=== PATIENT | male | born 1970 | race Caucasian/White ===

== ENCOUNTER 2017-05-09 21:04 | Inpatient (IN) | payer SELFPAY ==
[2017-05-09] MEDS ORDERED: Lorazepam 2 MG/ML VIAL ONE ×2 (21:54→22:49)
[2017-05-09 22:47] LABS: #Basophils 0.1 thou/uL (0.0-0.2); #Eosinphils 0.2 thou/uL (0.0-0.7); #Lymphocytes 2.1 thou/uL (1.20-3.40); #Monocytes 0.8 thou/uL (0.11-0.59); #Neutrophils 6.8 thou/uL (1.40-6.50); %Basophils 0.5 % (0.0-1.0); %Eosinophils 1.9 % (0.0-10.0); %Monocytes 8.1 % (0.0-10.0); Hematocrit 42.9 % (42.0-52.0); Mean Platelet Volume 7.3 fL (7.4-10.4); White Blood Cell (WBC) Count 9.9 thou/uL (4.8-10.8)
[2017-05-09 23:02] LABS: Lactic Acid - Sepsis 1.4 mmol/L (0.5-2.2)
[2017-05-09 23:03] LABS: Acetaminophen Less than 6.0 mcg/mL (10.0-30.0); Salicylate Less than 8.0 mg/dL (15.0-30.0)
[2017-05-09 23:05] LABS: ALT (SGPT) 7 U/L (8-55); AST (SGOT) 10 U/L (5-34); Alkaline Phosphatase 80 U/L (40-150); Anion Gap 13 mmol/L (10-20); BUN (Urea Nitrogen) 10 mg/dL (8.9-20.6); Bilirubin, Total 0.2 mg/dL (0.2-1.2); CK (CPK) 23 U/L (30-200); Calc. Creatinine Clearance 0 mL/min (70-130); Calcium 8.6 mg/dL (7.8-10.44); Carbon Dioxide 22 mmol/L (22-29); Chloride 109 mmol/L (98-107); Estimated GFR-MDRD Greater than 90; Globulin 2.4 g/dL (2.4-3.5); Lipase 56 U/L (8-78); Protein, Total 5.9 g/dL (6.0-8.3)
[2017-05-09] MEDS ORDERED: Haloperidol Lactate 5 MG/ML VIAL ONE (23:05)
[2017-05-09 23:09] LABS: Troponin I Less than 0.010 ng/mL (< 0.028)
[2017-05-09] MEDS ORDERED: diphenhydrAMINE 50 MG/ML VIAL ONE (23:15)
[2017-05-10] MEDS ORDERED: Acetaminophen 500 MG TAB ONE (00:55)
[2017-05-10] MEDS ORDERED: Ondansetron HCl/PF 4 MG/2 ML Vial IVP PRN (02:01)
[2017-05-10] MEDS ORDERED: Bisacodyl 5 MG TAB PO PRN (02:01)
--- NOTE | 2017-05-10 03:14 | HP ---
PRIMARY CARE PROVIDER: None. CHIEF COMPLAINT: Alcohol withdrawal. HISTORY OF PRESENT ILLNESS: Mr. Glass is a pleasant 46-year-old gentleman who was seen at [facility] on 05/10/2017. He reports that he has a history of chronic alcohol use. He stopped drinking alcohol 2 days ago. He started having pain everywhere. He took 12 pills of oxycodone three days ago. He took 20 tablets o f Focalin from his daughter the following day. Two days ago, he drank 1-2 caps of bleach in a gallon of water. He reports that he uses that to detox himself prior to drug screens. He also took 20 tab lets of Lyrica yesterday. He came to the emergency room because he has been feeling shaky over the last few days. He denies an y chest pain or shortness of breath. He denies any abdominal pain. He reports nausea, but denies an y vomiting. REVIEW OF SYSTEMS: The following complete review of systems was negative, unless otherwise mentioned in the HPI or below: Constitutional: Weight loss or gain, sense of well-being, ability to conduct usual activities, exercise tolerance. Skin/Breast: Rash, itching, changes in hair growth or loss, n ail changes, breast lumps, tenderness, swelling, nipple discharge. Eyes: Vision, double vision, tea ring, blind spots, pain. ENT/Mouth: Headaches (location, time of onset, duration, precipitating fac tors), vertigo, lightheadedness, injury. Vision, double vision, tearing, blind spots, pain, nose blee ding, colds, obstruction, discharge, dental difficulties, gingival bleeding, dentures, neck stiffness , pain, tenderness, masses in thyroid or other areas. Cardiovascular: Precordial pain, substernal d istress, palpitations, syncope, dyspnea on exertion, orthopnea, nocturnal paroxysmal dyspnea, edema, cyanosis, hypertension, heart murmurs, varicosities, phlebitis, claudication. Respiratory: Pain, sh ortness of breath, wheezing, stridor, cough, hemoptysis, fever or night sweats. Gastrointestinal: P oor appetite, dysphagia, indigestion, abdominal pain, heartburn, eructation, nausea, vomiting, hemate mesis, jaundice, constipation, or diarrhea, abnormal stools (adan-colored, tarry, bloody, greasy, fou l smelling), flatulence, hemorrhoids, recent changes in bowel habits. Genitourinary: Urgency, frequ ency, dysuria, nocturia, hematuria, polyuria, oliguria, unusual (or change in) color of urine, stones , hesitancy, change in size of stream, dribbling, acute retention or incontinence, libido, potency. Musculoskeletal: Pain, swelling, redness or heat of muscles or joints, limitation of motion, muscula r weakness, atrophy, cramps. Neurologic/Psychiatric: Convulsions, paralyzes, tremor, incoordination , paresthesias, difficulties with memory of speech, sensory or motor disturbances, or muscular coordi nation (ataxia, tremor), emotional problems, anxiety, depression, previous psychiatric care, unusual perceptions, hallucinations. Allergy/Immunologic: Skin rash, anemia, bleeding tendency, polydipsia, polyuria, intolerance to heat or cold. PAST MEDICAL HISTORY: Cauda equina, herniated disk at L4 and L5. PAST SURGICAL HISTORY: Back surgery x2, hernia repair, tonsillectomy. PSYCHIATRIC HISTORY: Anxiety, bipolar disorder, depression. SOCIAL HISTORY: The patient stopped drinking alcohol 2 days ago. Prior to that, he used to drink a case and half of beer every day since age 15. He reports occasional marijuana use. He smokes 2 pack s of cigarettes a day. FAMILY HISTORY: He denies any family history of premature coronary artery disease. ALLERGIES: PENICILLIN, PENICILLAMINE, PREDNISONE. CURRENT MEDICATIONS: None. PHYSICAL EXAMINATION: GENERAL: Mr. Glass is awake and alert, not in acute distress. He is speaking in [place] es. VITAL SIGNS: Blood pressure is 127/72, pulse is 89. His breathing at rate of 20 and saturating 98% on room air. He is afebrile. When he presented to the emergency room, he had a blood pressure of 14 4/93, pulse 121, respiratory rate of 22. EYES: No scleral icterus. No conjunctival pallor. ENT: Moist mucosal membranes. No oropharyngeal erythema or exudates. NECK: Supple, nontender, normal range of movement, trachea is midline. RESPIRATORY: Accessory muscles of breathing are not active. Chest wall movements are symmetric bila terally. LUNGS: Clear to auscultation without wheeze, rhonchi, or crepitations. CARDIOVASCULAR: S1 and S2 are heard, regular. Peripheral pulses palpable. No carotid bruit, no per icardial rub. ABDOMEN: Soft, nontender, bowel sounds heard. No hepatomegaly, no splenomegaly. NEUROLOGIC: Cranial nerves II through XII are intact. Deep tendon reflexes are 2+. PSYCHIATRIC: Normal mood, normal affect. Patient is oriented to person and place, not to time. SKIN: No rashes or subcutaneous nodules. LYMPHATIC: No cervical lymphadenopathy. MUSCULOSKELETAL: Power is 5/5 in all 4 extremities. LABORATORY DATA: Mr. Glass's labs and investigations were reviewed. I reviewed his chest x-ray , which does not show any pulmonary infiltrates. I reviewed his electrocardiogram, which shows sinus tachycardia, no ST changes to suggest an acute coronary syndrome. Laboratory investigation show nor mal white count, normal hemoglobin, normal platelet count, unremarkable comprehensive metabolic profi le, normal troponin I, and normal TSH. Plasma alcohol level is less than 10. Urine drug screen is p ending. ASSESSMENT AND PLAN: Mr. Glass is a pleasant 46-year-old gentleman who was seen at [facility] on 05/10/2017. His problem list includes: 1. Alcohol withdrawal: Mr. Glass stopped using alcohol 2 days ago. He is at high risk for del irium tremens. 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 We will start him on ASE p rotocol. 2. Polysubstance abuse: Mr. Glass has a history of marijuana use. He also received several na rcotics over the last few days. He has been counseled against polysubstance abuse. We will monitor him for now. 3. Tobacco use: The patient has been counseled regarding tobacco cessation, we will start him on ni cotine replacement therapy. 4. Chronic pain: I will start him on p.r.n. Toradol for now. Many thanks for allowing me to participate in your patient's care. Please feel free to contact me wi th any questions or concerns. LEVEL OF RISK: High. LEVEL OF COMPLEXITY: High.
[2017-05-10 03:18] VITALS: BMI 34.7
[2017-05-10] MEDS: Sodium Chloride 0.9% 1,000 ML IV SCH ×3 (03:25→23:15)
[2017-05-10 04:53] LABS: #Eosinphils 0.2 thou/uL (0.0-0.7); #Lymphocytes 1.8 thou/uL (1.20-3.40); #Monocytes 0.6 thou/uL (0.11-0.59); #Neutrophils 5.1 thou/uL (1.40-6.50); %Basophils 0.1 % (0.0-1.0); %Eosinophils 2.3 % (0.0-10.0); %Lymphocytes 23.2 % (21.0-51.0); %Monocytes 7.2 % (0.0-10.0); Mean Platelet Volume 7.3 fL (7.4-10.4); White Blood Cell (WBC) Count 7.6 thou/uL (4.8-10.8)
[2017-05-10 05:10] LABS: Anion Gap 8 mmol/L (10-20); BUN (Urea Nitrogen) 8 mg/dL (8.9-20.6); Calc. Creatinine Clearance 189 mL/min (70-130); Calcium 8.6 mg/dL (7.8-10.44); Carbon Dioxide 26 mmol/L (22-29); Chloride 112 mmol/L (98-107); Estimated GFR-MDRD Greater than 90
[2017-05-10] MEDS: Nicotine 21 MG PATCH TD SCH (05:57)
[2017-05-10] MEDS ORDERED: Thiamine HCl 200 MG/2 ML VIAL IM SCH (06:15)
[2017-05-10 07:02] LABS: ALT (SGPT) 8 U/L (8-55); AST (SGOT) 12 U/L (5-34); Alkaline Phosphatase 72 U/L (40-150); Anion Gap 7 mmol/L (10-20); BUN (Urea Nitrogen) 7 mg/dL (8.9-20.6); Bilirubin, Direct 0.1 mg/dL (0.1-0.3); Bilirubin, Total 0.2 mg/dL (0.2-1.2); Calc. Creatinine Clearance 191 mL/min (70-130); Calcium 8.5 mg/dL (7.8-10.44); Carbon Dioxide 23 mmol/L (22-29); Chloride 114 mmol/L (98-107); Estimated GFR-MDRD Greater than 90; Protein, Total 5.3 g/dL (6.0-8.3)
[2017-05-10] MEDS: Diazepam 5 MG TAB PO SCH ×2 (07:20→08:26)
[2017-05-10 07:55] LABS: Bilirubin Negative (Negative); Blood, Urine Negative (Negative); Glucose, Urine (Dipstick) Negative (Negative); Ketone, Urine Negative (Negative); Nitrite Negative (Negative); Protein, Urine (Dipstick) Negative (Neg-Trace); Urobilinogen 0.2 mg/dL (0.2-1.0)
--- NOTE | 2017-05-10 08:03 | RAD ---
PORTABLE CHEST: HISTORY: Ingestion. COMPARISON: Comparison is made to exam of 09/25/15. FINDINGS: There is a patchy infiltrate in the left lower lobe seen on today's exam. Right lung appears clear. Heart and mediastinum unremarkable. IMPRESSION: Patchy left lower lobe infiltrate. POS: OFF
[2017-05-10 08:10] LABS: Amphetamine Not Detected (NotDetected); Methadone Not Detected (NotDetected); Methamphetamine Not Detected (NotDetected)
[2017-05-10] MEDS ORDERED: FLU VACC QS2017-18 36 mo. & older 0.5 ML SYRINGE IM ONE (09:00)
[2017-05-10] MEDS: Folic Acid 1 MG TAB PO SCH (09:22)
[2017-05-10] MEDS: Multivitamin W/ Minerals 1 TAB PO SCH (09:22)
[2017-05-10] MEDS: Haloperidol Lactate 5 MG/ML VIAL SLOW IVP SCH ×4 (09:43→21:25)
[2017-05-10] MEDS: Enoxaparin Sodium 40 MG/0.4 ML SYRINGE SC SCH (09:50)
--- NOTE | 2017-05-10 09:52 | CON ---
DATE OF CONSULTATION: 05/10/2017 HISTORY: He is a 46-year-old unfortunate gentleman, heavy alcohol abuse, tobacco abuse who has been drinking a case a day for numerous years. He was admitted last night with symptoms of generalized anxiety, chronic pain. He takes a street med icine, oxycodone 12 pills. He is presently essentially unemployed. He also took 20 tablets of Lyrica, he drank 2 caps of bleach in a gallon of water. He has no primary care physician. This morning he is complaining of pain all over, but to my surprise denied any difficulty breathing. Additional information is he has been here numerous times, surprisingly we have never seen him before . PAST MEDICAL HISTORY: Pertinent otherwise for chronic pain, status post laminectomy, depression, hea vy alcohol and tobacco use. PAST SURGICAL HISTORY: Laminectomy, umbilical hernia. ALLERGIES: PENICILLIN. SOCIAL/FAMILY HISTORY: As above. REVIEW OF SYSTEMS: Otherwise, 10-point negative. PHYSICAL EXAMINATION: GENERAL: He appears to be in no acute distress. He is clearly tremulous. VITAL SIGNS: Blood pressure 119/80, pulse 89, respirations 24, temperature 97. CHEST: Chest revealed bilateral wheezing or rhonchi. CARDIAC: Normal S1-S2. No gallops. ABDOMEN: Soft. No masses. LABORATORY DATA: White count 10,000, H&H 13 and 41, platelet count 192. Electrolytes are normal. X -ray shows left-sided infiltrate. He had benzos and cannabinoids in his drug screen. Alcohol level was less than 10, syphilis test was negative. IMPRESSION: 1. Status post cessation of heavy alcohol drinking with probably some encephalopathy. 2. Chronic pain. 3. Left-sided pneumonia. 4. Tobacco abuse. 5. Bronchitis. PLAN: I have started empiric p.o. antibiotics, neb treatments, supportive care. I will follow while in the IMCU. Please note this is 70 minutes at the bedside time spent with the patient in the hospital in the unit .
[2017-05-10] MEDS: Acetaminophen 325 MG TAB PO PRN (10:22)
[2017-05-10] MEDS: Ketorolac Tromethamine 30 MG/ML VIAL IVP PRN (10:23)
[2017-05-10] MEDS: Diazepam 5 MG TAB PO PRN ×3 (12:30→21:36)
--- NOTE | 2017-05-10 14:11 | PDOC.EVN ---
Event Note - Event Note Event Note: Patient was agitated and striking at staff earlier. Now sedated with Haldol and sleeping comfortably in bed. Vitals stable. On ASE protocol. Will need [facility] eval once medically clear of alcohol withdrawals.
[2017-05-11] MEDS: Haloperidol Lactate 5 MG/ML VIAL SLOW IVP SCH ×6 (01:42→23:13)
[2017-05-11] MEDS: Diazepam 5 MG TAB PO PRN ×4 (02:28→21:11)
[2017-05-11 05:08] LABS: #Eosinphils 0.2 thou/uL (0.0-0.7); #Lymphocytes 1.5 thou/uL (1.20-3.40); #Monocytes 0.5 thou/uL (0.11-0.59); #Neutrophils 3.4 thou/uL (1.40-6.50); %Basophils 0.5 % (0.0-1.0); %Eosinophils 3.3 % (0.0-10.0); %Lymphocytes 26.1 % (21.0-51.0); %Monocytes 8.9 % (0.0-10.0); Hematocrit 41.6 % (42.0-52.0); Mean Platelet Volume 7.3 fL (7.4-10.4); Red Blood Cell (RBC) Count 4.25 mill/uL (4.70-6.10); White Blood Cell (WBC) Count 5.6 thou/uL (4.8-10.8)
[2017-05-11 05:42] LABS: Anion Gap 10 mmol/L (10-20); BUN (Urea Nitrogen) 4 mg/dL (8.9-20.6); Calc. Creatinine Clearance 194 mL/min (70-130); Calcium 8.6 mg/dL (7.8-10.44); Carbon Dioxide 23 mmol/L (22-29); Chloride 113 mmol/L (98-107); Estimated GFR-MDRD Greater than 90
[2017-05-11] MEDS: Nicotine 21 MG PATCH TD SCH (06:08)
--- NOTE | 2017-05-11 08:40 | PDOC.PN ---
- Subjective Encounter Start Date: 05/11/17 Encounter Start Time: 08:38 Patient seen at bedside. More calm today, no seizures reported. - Objective MAR Reviewed: Yes Vital Signs & Weight: Vital Signs (12 hours) Temp Pulse Resp BP BP Pulse Ox 05/11/17 07:38 97.2 F L 88 18 98 05/11/17 07:22 138/82 05/11/17 04:00 97.2 F L 88 18 135/73 135/73 96 05/11/17 00:20 126/79 05/11/17 00:00 98.6 F 81 20 126/79 98 Weight Weight 222 lb 1.6 oz I&O: 05/10/17 05/11/17 05/12/17 06:59 06:59 06:59 Intake Total 380 5223 Output Total 780 6739 Balance -400 -0300 Result Diagrams: 05/11/17 04:29 05/11/17 04:29 Phys Exam - Physical Examination Constitutional: NAD HEENT: moist MMs Neck: no JVD Respiratory: clear to auscultation bilateral Cardiovascular: RRR Gastrointestinal: soft Musculoskeletal: pulses present Neurological: moves all 4 limbs Psychiatric: A&O x 3 Dx/Plan (1) Alcohol withdrawal Code(s): F10.239 - ALCOHOL DEPENDENCE WITH WITHDRAWAL, UNSPECIFIED Status: Acute (2) Polysubstance abuse Code(s): F19.10 - OTHER PSYCHOACTIVE SUBSTANCE ABUSE, UNCOMPLICATED Status: Acute (3) Bronchitis Code(s): J40 - BRONCHITIS, NOT SPECIFIED ACUTE OR CHRONIC Status: Suspected - Plan cont current plan of care, continue antibiotics, PT/OT, social work specialist, DVT proph w/lovenox * Continue with ASE protocol. * PO Levaquin * Haldol PRN * Await Blood cultures * Once cleared, will require [facility] screen for inpatient psychiatric services.
[2017-05-11] MEDS: Enoxaparin Sodium 40 MG/0.4 ML SYRINGE SC SCH (09:15)
[2017-05-11] MEDS: Magnesium Oxide 400 MG TAB PO SCH (09:20)
[2017-05-11] MEDS: Multivitamin W/ Minerals 1 TAB PO SCH (09:20)
[2017-05-11] MEDS: Folic Acid 1 MG TAB PO SCH (09:20)
[2017-05-11] MEDS: Sodium Chloride 0.9% 1,000 ML IV SCH ×2 (09:21→21:11)
[2017-05-11] MEDS ORDERED: Diazepam 10 MG/2 ML SYRINGE IVP SCH (14:57)
[2017-05-11] MEDS: Ketorolac Tromethamine 30 MG/ML VIAL IVP PRN (16:47)
[2017-05-11] MEDS: Acetaminophen 325 MG TAB PO PRN (16:47)
--- NOTE | 2017-05-11 21:55 | PRG ---
DATE OF SERVICE: 05/11/2017 SUBJECTIVE: Mr. Quezada was examined. He has a sitter in the room; he is in no distress, althoug h he is fidgety. OBJECTIVE: GENERAL: He is oriented to person and place, not oriented to time. VITAL SIGNS: He is afebrile, heart rate is 95, blood pressure is 132/84 and respiratory rate 20. LUNGS: Clear. HEART: Regular rhythm. ABDOMEN: Soft. LABORATORY DATA: Hemoglobin is 13.6, white count 5.6 and platelets 190. Sodium 142, potassium 3.8, chloride 113, bicarb 23, BUN 4, creatinine 0.67 and glucose 97. ASSESSMENT AND PLAN: He says he has not anything to drink for a year and a half when I interviewed h im. He has told the nurses different things when I discussed this with the nurses. He told the admi tting physician, he quit drinking 2 days ago. Apparently, he took a large amount of oxycodone, multi ple other prescription drugs as well as drank bleach diluted in water as well as taking reportedly 20 Lyrica tablets. He remains stable, but not a candidate for any type of discharge, still needs a sitter. Probably, can move off a monitored bed in the morning if he is stable overnight, but it is reasonable to give him p.o. antimicrobial therapy. His chest radiograph on admission did not show anything jeanne lyndsey diagnostic of pneumonia, although he had some haziness at his left base, which could be pneumoni a or could be a chemical aspiration infiltrate. I agree with current care. He appears clinically st able.
[2017-05-12] MEDS: Haloperidol Lactate 5 MG/ML VIAL SLOW IVP SCH ×4 (01:34→12:40)
[2017-05-12 04:09] LABS: #Eosinphils 0.1 thou/uL (0.0-0.7); #Lymphocytes 1.5 thou/uL (1.20-3.40); #Monocytes 0.5 thou/uL (0.11-0.59); #Neutrophils 4.4 thou/uL (1.40-6.50); %Basophils 0.4 % (0.0-1.0); %Lymphocytes 22.5 % (21.0-51.0); Hematocrit 39.6 % (42.0-52.0); Mean Platelet Volume 7.1 fL (7.4-10.4); Red Blood Cell (RBC) Count 4.08 mill/uL (4.70-6.10); White Blood Cell (WBC) Count 6.5 thou/uL (4.8-10.8)
[2017-05-12 04:30] LABS: Anion Gap 9 mmol/L (10-20); BUN (Urea Nitrogen) 4 mg/dL (8.9-20.6); Calc. Creatinine Clearance 194 mL/min (70-130); Calcium 8.6 mg/dL (7.8-10.44); Carbon Dioxide 25 mmol/L (22-29); Chloride 111 mmol/L (98-107); Estimated GFR-MDRD Greater than 90
[2017-05-12] MEDS: Sodium Chloride 0.9% 1,000 ML IV SCH (05:28)
[2017-05-12] MEDS: Nicotine 21 MG PATCH TD SCH (05:28)
[2017-05-12] MEDS: Ketorolac Tromethamine 30 MG/ML VIAL IVP PRN ×2 (07:49→16:33)
[2017-05-12] MEDS: Folic Acid 1 MG TAB PO SCH (07:50)
[2017-05-12] MEDS: Multivitamin W/ Minerals 1 TAB PO SCH (07:50)
[2017-05-12] MEDS: Magnesium Oxide 400 MG TAB PO SCH (07:50)
[2017-05-12] MEDS: Acetaminophen 325 MG TAB PO PRN ×2 (07:50→12:06)
[2017-05-12] MEDS: Diazepam 5 MG TAB PO PRN ×2 (07:50→12:06)
[2017-05-12] MEDS: Enoxaparin Sodium 40 MG/0.4 ML SYRINGE SC SCH (07:51)
[2017-05-12] MEDS ORDERED: Ziprasidone 20 MG VIAL IM PRN (12:41)
[2017-05-12] MEDS ORDERED: Diazepam 5 MG TAB PO PRN (12:42)
--- NOTE | 2017-05-12 12:44 | PDOC.PN ---
- Subjective Encounter Start Date: 05/12/17 Encounter Start Time: 12:42 Patient seen and examined. No new complaints. No overnight events - Objective MAR Reviewed: Yes Vital Signs & Weight: Vital Signs (12 hours) Temp Pulse Resp BP BP BP BP 05/12/17 12:03 98.6 F 79 18 145/82 H 05/12/17 11:26 97.2 F L 71 18 134/79 05/12/17 07:19 98.6 F 89 16 05/12/17 07:00 98.2 F 16 125/66 05/12/17 04:00 98.6 F 89 16 102/70 102/70 Pulse Ox 05/12/17 12:03 100 05/12/17 11:26 99 05/12/17 07:19 97 05/12/17 07:00 05/12/17 04:00 95 Weight Weight 222 lb 1.6 oz I&O: 05/11/17 05/12/17 05/13/17 06:59 06:59 06:59 Intake Total 5223 1700 Output Total 6795 475 Balance -1572 1225 Result Diagrams: 05/12/17 03:38 05/12/17 03:38 Phys Exam - Physical Examination Constitutional: NAD HEENT: PERRLA Neck: no JVD Respiratory: no wheezing Cardiovascular: no significant murmur Gastrointestinal: non-tender Musculoskeletal: pulses present Neurological: moves all 4 limbs Psychiatric: A&O x 3 Dx/Plan (1) Alcohol withdrawal Code(s): F10.239 - ALCOHOL DEPENDENCE WITH WITHDRAWAL, UNSPECIFIED Status: Acute (2) Polysubstance abuse Code(s): F19.10 - OTHER PSYCHOACTIVE SUBSTANCE ABUSE, UNCOMPLICATED Status: Acute (3) Bronchitis Code(s): J40 - BRONCHITIS, NOT SPECIFIED ACUTE OR CHRONIC Status: Suspected (4) Back pain Code(s): M54.9 - DORSALGIA, UNSPECIFIED Status: Acute (5) Hypertension Code(s): I10 - ESSENTIAL (PRIMARY) HYPERTENSION Status: Chronic (6) Tobacco abuse Code(s): Z72.0 - TOBACCO USE Status: Chronic - Plan * possible suicide attempt * await [facility] * medically stable * change to po haldol * cont abx
[2017-05-12] MEDS ORDERED: Sterile Water 10 ML VIAL FS PRN (12:52)
--- NOTE | 2017-05-12 17:04 | PRG ---
DATE OF SERVICE: 05/12/2017 SUBJECTIVE: Mr. Glass has no new problems were reported, confirmed with the nursing staff. OBJECTIVE: GENERAL: He is oriented x3. VITAL SIGNS: He is afebrile, blood pressure is 145/82, respiratory rate is 18, oximetry is 100%, pul se 79. LUNGS: Clear. CARDIOVASCULAR: Regular rhythm. IMPRESSION: 1. Alcoholism with apparent withdrawal on presentation 2. History of multiple prescription drugs intentionally an excessive amount. 3. History of drinking diluted bleach prior to admission. PLAN: He is medically stable. If an inpatient psychiatric hospital as the next step, he is stable t o be transferred in my opinion.
[2017-05-12] MEDS: Lidocaine 5% Patch TD SCH (17:20)
[2017-05-12] MEDS: Haloperidol 5 MG TAB PO SCH (20:31)
[2017-05-13] MEDS: Lidocaine Patch Removal 1 EACH TOP SCH (05:32)
[2017-05-13] MEDS: Nicotine 21 MG PATCH TD SCH (05:32)
[2017-05-13] MEDS: Magnesium Oxide 400 MG TAB PO SCH (08:37)
[2017-05-13] MEDS: Folic Acid 1 MG TAB PO SCH (08:37)
[2017-05-13] MEDS: Multivitamin W/ Minerals 1 TAB PO SCH (08:37)
[2017-05-13] MEDS: Enoxaparin Sodium 40 MG/0.4 ML SYRINGE SC SCH (08:39)
[2017-05-13] MEDS: Haloperidol 5 MG TAB PO SCH ×2 (10:16→21:04)
--- NOTE | 2017-05-13 16:19 | PDOC.PN ---
- Subjective Encounter Start Date: 05/13/17 Encounter Start Time: 16:18 Patient seen and examined. No new complaints. No overnight events no suicidal ideations - Objective MAR Reviewed: Yes Vital Signs & Weight: Vital Signs (12 hours) Temp Pulse Resp BP BP BP Pulse Ox 05/13/17 15:20 97.9 F 78 16 145/90 H 99 05/13/17 11:20 97.6 F 63 20 136/73 98 05/13/17 08:00 97.8 F 65 18 138/82 98 05/13/17 07:37 97.8 F 65 18 138/82 98 Weight Weight 222 lb 1.6 oz I&O: 05/12/17 05/13/17 05/14/17 06:59 06:59 06:59 Intake Total 1700 1650 Output Total 475 Balance 1225 1650 Result Diagrams: 05/12/17 03:38 05/12/17 03:38 Phys Exam - Physical Examination Constitutional: NAD HEENT: PERRLA Neck: no JVD Respiratory: no wheezing Cardiovascular: no significant murmur Gastrointestinal: non-tender Musculoskeletal: pulses present Neurological: moves all 4 limbs Psychiatric: A&O x 3 Dx/Plan (1) Alcohol withdrawal Code(s): F10.239 - ALCOHOL DEPENDENCE WITH WITHDRAWAL, UNSPECIFIED Status: Acute (2) Polysubstance abuse Code(s): F19.10 - OTHER PSYCHOACTIVE SUBSTANCE ABUSE, UNCOMPLICATED Status: Acute (3) Bronchitis Code(s): J40 - BRONCHITIS, NOT SPECIFIED ACUTE OR CHRONIC Status: Suspected (4) Back pain Code(s): M54.9 - DORSALGIA, UNSPECIFIED Status: Acute (5) Hypertension Code(s): I10 - ESSENTIAL (PRIMARY) HYPERTENSION Status: Chronic (6) Tobacco abuse Code(s): Z72.0 - TOBACCO USE Status: Chronic - Plan * mediacally stable * f/u [facility] rec's
[2017-05-13] MEDS: Lidocaine 5% Patch TD SCH (17:33)
[2017-05-14] MEDS: Nicotine 21 MG PATCH TD SCH (05:34)
[2017-05-14] MEDS: Lidocaine Patch Removal 1 EACH TOP SCH (05:36)
[2017-05-14] MEDS: Acetaminophen 325 MG TAB PO PRN ×3 (08:17→19:11)
[2017-05-14] MEDS: Folic Acid 1 MG TAB PO SCH (08:17)
[2017-05-14] MEDS: Enoxaparin Sodium 40 MG/0.4 ML SYRINGE SC SCH (08:18)
[2017-05-14] MEDS: Magnesium Oxide 400 MG TAB PO SCH (08:18)
[2017-05-14] MEDS: Multivitamin W/ Minerals 1 TAB PO SCH (08:18)
[2017-05-14] MEDS: Haloperidol 5 MG TAB PO SCH ×2 (08:19→20:24)
--- NOTE | 2017-05-14 13:40 | PDOC.PN ---
- Subjective Encounter Start Date: 05/14/17 Encounter Start Time: 13:35 Patient seen and examined. No new complaints. No overnight events - Objective MAR Reviewed: Yes Vital Signs & Weight: Vital Signs (12 hours) Temp Pulse Resp BP BP Pulse Ox 05/14/17 12:00 97.8 F 81 16 130/77 130/77 05/14/17 08:00 97.7 F 90 16 136/88 136/88 98 Weight Weight 222 lb 1.6 oz I&O: 05/13/17 05/14/17 05/15/17 06:59 06:59 06:59 Intake Total 1650 1000 Balance 1650 1000 Result Diagrams: 05/12/17 03:38 05/12/17 03:38 Phys Exam - Physical Examination Constitutional: NAD HEENT: PERRLA Neck: no JVD Respiratory: no wheezing Cardiovascular: no significant murmur Gastrointestinal: non-tender Musculoskeletal: pulses present Neurological: moves all 4 limbs Psychiatric: A&O x 3 Dx/Plan (1) Alcohol withdrawal Code(s): F10.239 - ALCOHOL DEPENDENCE WITH WITHDRAWAL, UNSPECIFIED Status: Acute (2) Polysubstance abuse Code(s): F19.10 - OTHER PSYCHOACTIVE SUBSTANCE ABUSE, UNCOMPLICATED Status: Acute (3) Bronchitis Code(s): J40 - BRONCHITIS, NOT SPECIFIED ACUTE OR CHRONIC Status: Suspected (4) Back pain Code(s): M54.9 - DORSALGIA, UNSPECIFIED Status: Acute (5) Hypertension Code(s): I10 - ESSENTIAL (PRIMARY) HYPERTENSION Status: Chronic (6) Tobacco abuse Code(s): Z72.0 - TOBACCO USE Status: Chronic - Plan * doing well * [facility] consult
[2017-05-14] MEDS: Lidocaine 5% Patch TD SCH (17:19)
[2017-05-14] MEDS: Ketorolac Tromethamine 30 MG/ML VIAL IVP PRN (20:42)
[2017-05-15] MEDS: Nicotine 21 MG PATCH TD SCH (05:53)
[2017-05-15] MEDS: Lidocaine Patch Removal 1 EACH TOP SCH (05:53)
[2017-05-15] MEDS: Acetaminophen 325 MG TAB PO PRN ×2 (05:56→13:14)
--- NOTE | 2017-05-15 07:24 | PDOC.PN ---
- Subjective Encounter Start Date: 05/15/17 Encounter Start Time: 14:45 Subjective: No complaints today. No CP/SOB/N/V/abd pain. States he feels -: much less depressed and in a better place now and would -: like to go home. [facility] interviewing currently. - Objective MAR Reviewed: Yes Vital Signs & Weight: Vital Signs (12 hours) Temp Pulse Resp BP BP BP Pulse Ox 05/15/17 04:00 97.8 F 76 16 133/76 97 05/15/17 00:00 97.9 F 71 16 114/60 97 05/14/17 19:53 98.7 F 66 18 134/76 98 Weight Weight 222 lb 1.6 oz I&O: 05/14/17 05/15/17 05/16/17 06:59 06:59 06:59 Intake Total 1000 2480 Balance 1000 2480 Result Diagrams: 05/12/17 03:38 05/12/17 03:38 Phys Exam - Physical Examination Constitutional: NAD HEENT: moist MMs Respiratory: no wheezing, no rales, no rhonchi, clear to auscultation bilateral Cardiovascular: RRR, no significant murmur Gastrointestinal: soft, positive bowel sounds Neurological: non-focal, moves all 4 limbs Psychiatric: normal affect, A&O x 3 Dx/Plan (1) Alcohol withdrawal Code(s): F10.239 - ALCOHOL DEPENDENCE WITH WITHDRAWAL, UNSPECIFIED Status: Resolved (2) Polysubstance abuse Code(s): F19.10 - OTHER PSYCHOACTIVE SUBSTANCE ABUSE, UNCOMPLICATED Status: Acute (3) Bronchitis Code(s): J40 - BRONCHITIS, NOT SPECIFIED ACUTE OR CHRONIC Status: Suspected (4) Back pain Code(s): M54.9 - DORSALGIA, UNSPECIFIED Status: Chronic (5) Hypertension Code(s): I10 - ESSENTIAL (PRIMARY) HYPERTENSION Status: Chronic (6) Tobacco abuse Code(s): Z72.0 - TOBACCO USE Status: Chronic - Plan cont current plan of care Patient medically cleared, awaiting [facility] eval and placement * . - Discharge Day Encounter end time: 15:15
[2017-05-15] MEDS: Folic Acid 1 MG TAB PO SCH (08:10)
[2017-05-15] MEDS: Multivitamin W/ Minerals 1 TAB PO SCH (08:10)
[2017-05-15] MEDS: Magnesium Oxide 400 MG TAB PO SCH (08:10)
[2017-05-15] MEDS: Enoxaparin Sodium 40 MG/0.4 ML SYRINGE SC SCH (08:11)
[2017-05-15] MEDS: Haloperidol 5 MG TAB PO SCH (08:14)
[2017-05-15] MEDS ORDERED: Ketorolac Tromethamine 30 MG/ML VIAL IVP PRN (08:23)
[2017-05-15 11:54] VITALS: BP 133/83; TEMP 98.2
--- NOTE | 2017-05-16 03:38 | DIS ---
PRIMARY CARE PHYSICIAN: Ian Greene. DIAGNOSES ON ADMISSION: 1. Alcohol withdrawal syndrome. 2. Polysubstance abuse. 3. Tobacco use. 4. Chronic pain. DIAGNOSES AT DISCHARGE: 1. Alcohol withdrawal syndrome, resolved. 2. Polysubstance abuse. 3. Bronchitis. 4. Chronic back pain. 5. Hypertension. 6. Tobacco abuse. PROCEDURES: None. CONSULTATIONS: 1. Pulmonology, Dr. Wolf. 2. [facility]. SUMMARY OF HOSPITAL COURSE: This is a 46-year-old man with a history of chronic narcotic and alcohol abuse. He took quite a few pills of narcotics before coming in and then couple days ago, he also dr ank some bleach in a gallon of water, which he often uses to try and detox himself prior to drug scre ens. He also took 20 tablets of Lyrica the day before presentation. He has not been drinking alcoho l for 2 days and came in with withdrawals from alcohol. The patient was admitted upon an ESDRAS protoco l. He was also given NSAIDs for his chronic pain. The patient detoxed off alcohol with other drugs in his system. He did well and once he was cleared medically, [facility] came to evaluate him. The patien t reports that he was feeling much better and in much better mood since he had cleared all of the pavan gs out of his system. He denied any suicidal ideation and after talking with [facility], they cleared him to be discharged home with safety plan. He is going to be with his and follow up with them as a n outpatient. DISCHARGE MANAGEMENT: Discharged home. Follow up with [facility] as needed. ACTIVITY: As tolerated. DIET: Regular diet. MEDICATIONS: The patient can resume his home Lyrica, but is to stop all opiates.
== END 2017-05-15 16:23 | disposition home or self-care (01) | DRG 897 ==
LOC: ERS 21:04 → IMCU/EMU 05-10 01:45 → ONC 05-12 11:26
PROVIDERS: ADMIT Internal Medicine; ATTEND Internal Medicine
DX: F10.230 Alcohol dependence with withdrawal, uncomplicated (principal); F11.10 Opioid abuse, uncomplicated; F19.10 Other psychoactive substance abuse, uncomplicated; F41.1 Generalized anxiety disorder; I10 Essential (primary) hypertension; J40 Bronchitis, not specified as acute or chronic; G89.29 Other chronic pain; F12.90 Cannabis use, unspecified, uncomplicated; M54.9 Dorsalgia, unspecified; F17.210 Nicotine dependence, cigarettes, uncomplicated; Z88.0 Allergy status to penicillin
CPT/HCPCS: 36415; 71010; 80048; 80053; 80306; 80307; 81003; 82248; 82550; 82553; 83605; 83690; 84443; 84484; 85025; 86780; 87086; 93005; 96372; 96374; 96375; 96376; A4216; J1200; J1630; J1650; J1885; J2060; J3475; J3486; J7050; J7620

== ENCOUNTER → 2018-05-27 | Emergency (ER) | payer SELFPAY ==
[~2018-05-27] MED LIST: Lorazepam 1 MG TAB ONE; Nicotine 21 MG PATCH TOP SCH; Ziprasidone 20 MG VIAL ONE; diphenhydrAMINE 50 MG CAP ONE
[2018-05-27 19:12] LABS: #Basophils 0.1 thou/uL (0.0-0.2); #Eosinphils 0.2 thou/uL (0.0-0.7); #Lymphocytes 4.2 thou/uL (1.20-3.40); #Monocytes 0.5 thou/uL (0.11-0.59); #Neutrophils 4.2 thou/uL (1.40-6.50); %Basophils 1.3 % (0.0-1.0); %Eosinophils 1.9 % (0.0-10.0); %Lymphocytes 45.7 % (21.0-51.0); %Monocytes 5.9 % (0.0-10.0); %Neutrophils 45.2 % (42.0-75.0); Hemoglobin 18.6 g/dL (14.0-18.0); Mean Corpuscular HGB CONC 33.5 g/dL (32.0-36.0); Mean Corpuscular Hemoglobin 32.5 pg (27.0-31.0); Platelet Count 220 thou/uL (130-400); RBC Distribution Width 12.6 % (11.5-14.5); Red Blood Cell (RBC) Count 5.73 mill/uL (4.70-6.10); White Blood Cell (WBC) Count 9.2 thou/uL (4.8-10.8)
[2018-05-27 19:29] LABS: ALT (SGPT) 17 U/L (8-55); AST (SGOT) 20 U/L (5-34); Acetaminophen Less than 6.0 mcg/mL (10.0-30.0); Albumin 3.8 g/dL (3.5-5.0); Alcohol 248 mg/dL (Less than 10); Alkaline Phosphatase 65 U/L (40-150); Anion Gap 14 mmol/L (10-20); BUN (Urea Nitrogen) 4 mg/dL (8.9-20.6); Bilirubin, Total 0.4 mg/dL (0.2-1.2); Calc. Creatinine Clearance 0 mL/min (70-130); Calcium 8.8 mg/dL (7.8-10.44); Carbon Dioxide 21 mmol/L (22-29); Chloride 103 mmol/L (98-107); Estimated GFR-MDRD Greater than 90; Globulin 2.8 g/dL (2.4-3.5); Glucose 98 mg/dL (70-105); Potassium 3.8 mmol/L (3.5-5.1); Protein, Total 6.6 g/dL (6.0-8.3); Salicylate Less than 8.0 mg/dL (15.0-30.0); Sodium 134 mmol/L (136-145)
[2018-05-27 20:54] LABS: Bilirubin Negative (Negative); Blood, Urine Negative (Negative); Clarity CLEAR (Clear); Glucose, Urine (Dipstick) Negative (Negative); Leukocyte Negative (Negative); Nitrite Negative (Negative); Protein, Urine (Dipstick) Negative (Neg-Trace); Specific Gravity, Urine 1.002 (1.002-1.036); Urobilinogen 0.2 mg/dL (0.2-1.0); pH, Urine 6.5 (5.0-9.0)
[2018-05-27 21:02] LABS: Amphetamine Not Detected (NotDetected); Benzodiazepine Screen Not Detected (NotDetected); Cocaine Metabolite Screen Not Detected (NotDetected); Medtox Reader # READER 4; Methamphetamine Not Detected (NotDetected); Opiate Screen Not Detected (NotDetected); Phencyclidine (PCP) Not Detected (NotDetected); THC/Cannabinoid Screen Detected (NotDetected)
[2018-05-27 21:03] LABS: Barbiturates Screen Not Detected (NotDetected); Medtox Control Line Valid? VALID (VALID); Methadone Not Detected (NotDetected); Oxycodone Screen Not Detected (NotDetected); Tricyclic Screen Not Detected (NotDetected)
== END ==
LOC: ERS 18:45
DX: F32.9 Major depressive disorder, single episode, unspecified (principal); F41.9 Anxiety disorder, unspecified; F17.210 Nicotine dependence, cigarettes, uncomplicated
CPT/HCPCS: 36415; 80053; 80306; 80307; 81003; 84443; 85025; 96360; 96372; J3486

== ENCOUNTER 2018-11-27 08:52 | Emergency (ER) | payer SELFPAY ==
--- NOTE | 2018-11-27 09:18 | RAD ---
Right knee 4 views HISTORY: Right knee pain.. FINDINGS: Joint spaces are preserved. Minimal osteophytosis. No acute fracture, dislocation, or fluid distention of the suprapatellar bursa. Small density projecting over the anterior the lateral view is favored to represent a bone island in the medial femoral condyle based on the frontal view. IMPRESSION: No acute osseous abnormalities are demonstrated.
[2018-11-27] MEDS ORDERED: HYDROcodone/Acetaminophen 5/325 mg Tablet ONE (09:48)
== END 2018-11-27 10:16 | disposition home or self-care (01) ==
LOC: ERS 08:52
DX: G89.11 Acute pain due to trauma (principal); M25.561 Pain in right knee; F41.9 Anxiety disorder, unspecified; F31.9 Bipolar disorder, unspecified; F17.210 Nicotine dependence, cigarettes, uncomplicated

== ENCOUNTER 2018-12-06 09:39 | Emergency (ER) | payer SELFPAY ==
[2018-12-06] MEDS ORDERED: Morphine 4 MG/ML VIAL ONE (09:50)
[2018-12-06 10:10] LABS: #Eosinphils 0.1 thou/uL (0.0-0.7); #Lymphocytes 2.2 thou/uL (1.20-3.40); #Monocytes 0.4 thou/uL (0.11-0.59); #Neutrophils 5.1 thou/uL (1.40-6.50); %Basophils 0.5 % (0.0-1.0); %Eosinophils 0.7 % (0.0-10.0); %Monocytes 5.2 % (0.0-10.0); %Neutrophils 65.5 % (42.0-75.0); Hemoglobin 15.8 g/dL (14.0-18.0); Mean Corpuscular HGB CONC 32.8 g/dL (32.0-36.0); Mean Corpuscular Hemoglobin 31.6 pg (27.0-31.0); Mean Corpuscular Volume 96.2 fL (78.0-98.0); Mean Platelet Volume 6.9 fL (7.4-10.4); Platelet Count 229 thou/uL (130-400); RBC Distribution Width 12.2 % (11.5-14.5); Red Blood Cell (RBC) Count 4.99 mill/uL (4.70-6.10); White Blood Cell (WBC) Count 7.8 thou/uL (4.8-10.8)
--- NOTE | 2018-12-06 10:25 | RAD ---
EXAM: XR Shoulder Lt 3 View STANDARD PROVIDED CLINICAL HISTORY: Pain FINDINGS: There is no evidence for fracture or other acute osseous abnormality. Alignment appears anatomic. Acr omioclavicular and glenohumeral degenerative changes noted. IMPRESSION: No evidence for an acute osseous abnormality. If there is persistent clinical concern, conservative m anagement and follow-up imaging advised.
--- NOTE | 2018-12-06 10:32 | CT ---
CT Brain WO Con: 12/06/2018 9:47 AM CLINICAL HISTORY: Fall with head injury and pain. COMPARISON: 09/25/2015 FINDINGS: Hemorrhage: None. Ventricular system: Normal in size and morphology for the patient's age. Cerebral parenchyma: Normal Midline shift: None. Mass: No mass effect. Calvarium: Normal. Visualized Paranasal sinuses: Mucosal thickening/retention cyst formation.. IMPRESSION: No acute intracranial abnormalities.
[2018-12-06 10:40] LABS: ALT (SGPT) 9 U/L (8-55); AST (SGOT) 16 U/L (5-34); Albumin 3.7 g/dL (3.5-5.0); Alkaline Phosphatase 52 U/L (40-150); Anion Gap 13 mmol/L (10-20); BUN (Urea Nitrogen) 8 mg/dL (8.9-20.6); Bilirubin, Total 0.4 mg/dL (0.2-1.2); Calc. Creatinine Clearance 0 mL/min (70-130); Calcium 9.3 mg/dL (7.8-10.44); Carbon Dioxide 23 mmol/L (22-29); Chloride 108 mmol/L (98-107); Estimated GFR-MDRD Greater than 90; Globulin 2.6 g/dL (2.4-3.5); Glucose 110 mg/dL (70-105); Potassium 4.1 mmol/L (3.5-5.1); Protein, Total 6.3 g/dL (6.0-8.3); Sodium 140 mmol/L (136-145)
--- NOTE | 2018-12-06 10:40 | CT ---
EXAM: CT cervical spine PROVIDED CLINICAL HISTORY: Pain status post injury COMPARISON: 09/25/2015 FINDINGS: No evidence for fracture or traumatic subluxation. No prevertebral soft tissue swelling apparent. Vi sualized lung apices appear clear. IMPRESSION: No evidence for fracture or traumatic subluxation.
--- NOTE | 2018-12-06 11:24 | RAD ---
EXAM: XR Hand Lt 3 View STANDARD PROVIDED CLINICAL HISTORY: Pain FINDINGS: There is no evidence for acute fracture or other acute osseous abnormality. Alignment appears anatomi c. Joint spaces appear preserved. Chronic appearing osseous deficiency involving the terminal tuft of the index digit. IMPRESSION: No evidence for an acute osseous abnormality. If there is persistent clinical concern, conservative m anagement and follow-up imaging advised.
--- NOTE | 2018-12-06 11:50 | CT ---
CT ABDOMEN AND PELVIS WITHOUT CONTRAST: HISTORY: Fall. Back pain. FINDINGS: Absence of oral and IV contrast reduces the sensitivity of the exam, particularly for evaluation of s olid organs and bowel. The lung bases are unremarkable. No free air or free fluid is seen in the abdomen or pelvis. There are degenerative changes in the spine with mild dextroscoliosis. No acute fracture is seen. There i s mild retrolisthesis of the L2 over L3 vertebral bodies. No calcified gallstones are seen. No calculi are seen in the kidneys, ureters, or urinary bladder. No hydroureteronephrosis is noted on either side. The urinary bladder is well distended and appears intact. IMPRESSION: Limited examination. No secondary signs of intraabdominal injury. POS: TPC
== END 2018-12-06 12:11 | disposition home or self-care (01) ==
LOC: ERS 09:39
DX: M54.2 Cervicalgia (principal); R51 Headache; M54.6 Pain in thoracic spine; M54.5 Low back pain; F41.9 Anxiety disorder, unspecified; F31.9 Bipolar disorder, unspecified; F17.210 Nicotine dependence, cigarettes, uncomplicated; W10.9XXA Fall (on) (from) unspecified stairs and steps, initial encounter
CPT/HCPCS: 70450; 72125; 74176; 80053; 85025; 93005; 96374; J2270

== ENCOUNTER 2018-12-11 20:08 | Emergency (ER) | payer SELFPAY ==
[2018-12-11 20:42] LABS: #Eosinphils 0.1 thou/uL (0.0-0.7); #Lymphocytes 1.5 thou/uL (1.20-3.40); #Monocytes 0.8 thou/uL (0.11-0.59); #Neutrophils 10.5 thou/uL (1.40-6.50); %Basophils 0.1 % (0.0-1.0); %Eosinophils 0.4 % (0.0-10.0); %Lymphocytes 11.7 % (21.0-51.0); %Monocytes 5.9 % (0.0-10.0); %Neutrophils 81.9 % (42.0-75.0); Mean Corpuscular HGB CONC 34.5 g/dL (32.0-36.0); Mean Corpuscular Hemoglobin 32.7 pg (27.0-31.0); Mean Corpuscular Volume 94.8 fL (78.0-98.0); Mean Platelet Volume 7.3 fL (7.4-10.4); Platelet Count 191 thou/uL (130-400); RBC Distribution Width 12.2 % (11.5-14.5); Red Blood Cell (RBC) Count 4.59 mill/uL (4.70-6.10); White Blood Cell (WBC) Count 12.9 thou/uL (4.8-10.8)
[2018-12-11] MEDS ORDERED: Lorazepam 2 MG/ML VIAL ONE (20:55)
[2018-12-11] MEDS ORDERED: Haloperidol Lactate 5 MG/ML VIAL ONE (20:55)
[2018-12-11 21:03] LABS: ALT (SGPT) 9 U/L (8-55); AST (SGOT) 11 U/L (5-34); Acetaminophen Less than 6.0 mcg/mL (10.0-30.0); Albumin 3.1 g/dL (3.5-5.0); Alcohol Less than 10 mg/dL (Less than 10); Alkaline Phosphatase 51 U/L (40-150); Anion Gap 10 mmol/L (10-20); BUN (Urea Nitrogen) 8 mg/dL (8.9-20.6); Bilirubin, Total 0.7 mg/dL (0.2-1.2); Calc. Creatinine Clearance 0 mL/min (70-130); Calcium 8.6 mg/dL (7.8-10.44); Carbon Dioxide 25 mmol/L (22-29); Chloride 105 mmol/L (98-107); Estimated GFR-MDRD Greater than 90; Globulin 2.2 g/dL (2.4-3.5); Glucose 120 mg/dL (70-105); Potassium 3.3 mmol/L (3.5-5.1); Protein, Total 5.3 g/dL (6.0-8.3); Salicylate Less than 8.0 mg/dL (15.0-30.0); Sodium 137 mmol/L (136-145)
--- NOTE | 2018-12-11 21:09 | RAD ---
EXAM: Right shoulder: 3 views INDICATIONS: Trauma COMPARISON: None. FINDINGS: No evidence of fracture or dislocation. AC joint normally aligned. IMPRESSION: No acute finding
[2018-12-11 22:21] LABS: Amphetamine Not Detected (NotDetected); Barbiturates Screen Not Detected (NotDetected); Benzodiazepine Screen Not Detected (NotDetected); Cocaine Metabolite Screen Not Detected (NotDetected); Medtox Control Line Valid? VALID (VALID); Medtox Reader # READER 1; Methadone Not Detected (NotDetected); Methamphetamine Not Detected (NotDetected); Opiate Screen Not Detected (NotDetected); Oxycodone Screen Not Detected (NotDetected); Phencyclidine (PCP) Not Detected (NotDetected); THC/Cannabinoid Screen Not Detected (NotDetected); Tricyclic Screen Not Detected (NotDetected)
[2018-12-12] MEDS ORDERED: Gabapentin 300 MG CAP PO SCH ×3 (03:15→15:45)
[2018-12-12] MEDS ORDERED: Mirtazapine 15 MG TAB PO SCH ×3 (03:15→15:45)
[2018-12-12] MEDS ORDERED: Lithium Carbonate 150 MG CAP PO SCH (15:30)
[2018-12-12] MEDS ORDERED: Lorazepam 2 MG/ML VIAL IM SCH (15:30)
[2018-12-12] MEDS ORDERED: Haloperidol Lactate 5 MG/ML VIAL IM SCH (15:30)
== END 2018-12-13 17:37 ==
LOC: ERS 20:08
DX: S51.832A Puncture wound without foreign body of left forearm, initial encounter (principal); F31.9 Bipolar disorder, unspecified; F41.9 Anxiety disorder, unspecified; F17.210 Nicotine dependence, cigarettes, uncomplicated; Z79.899 Other long term (current) drug therapy; W26.0XXA Contact with knife, initial encounter
CPT/HCPCS: 36415; 51701; 80053; 80306; 80307; 85025; 96372; J1630; J2060

== ENCOUNTER 2019-12-02 11:34 | Emergency (ER) | payer SELFPAY | END 2019-12-02 11:56 | LOC: ERS 11:34 | DX: F10.129 Alcohol abuse with intoxication, unspecified (principal) | CPT/HCPCS: 99283 ==

== ENCOUNTER 2022-08-02 00:40 | Inpatient (IN) | payer SELFPAY ==
[2022-08-02] MEDS ORDERED: diphenhydrAMINE 50 MG/ML VIAL ONE (00:55)
[2022-08-02] MEDS ORDERED: LORazepam 2 MG/ML SYR.(CARPUJECT) ONE (00:55)
[2022-08-02] MEDS ORDERED: Ziprasidone 20 MG VIAL ONE (01:26)
[2022-08-02] MEDS ORDERED: Sterile Water 10 ML ONE (01:26)
[2022-08-02 02:12] LABS: #Basophils 0.1 thou/uL (0.0-0.2); #Eosinphils 0.1 thou/uL (0.0-0.7); #Lymphocytes 2.6 thou/uL (1.20-3.40); #Monocytes 0.7 thou/uL (0.11-0.59); #Neutrophils 7.6 thou/uL (1.40-6.50); %Basophils 0.5 % (0.0-1.0); %Eosinophils 0.7 % (0.0-10.0); %Lymphocytes 23.2 % (21.0-51.0); %Monocytes 6.6 % (0.0-10.0); Hemoglobin 14.5 g/dL (14.0-18.0); Mean Corpuscular HGB CONC 33.3 g/dL (32.0-36.0); Mean Corpuscular Hemoglobin 31.6 pg (27.0-31.0); Mean Platelet Volume 7.4 fL (7.4-10.4); Platelet Count 222 10x3/uL (130-400); Red Blood Cell (RBC) Count 4.57 mill/uL (4.70-6.10)
[2022-08-02 02:19] LABS: INR-International Normal Ratio 0.9; PTT 25.7 sec (22.9-36.1); Prothrombin Time 12.9 sec (12.0-14.7)
[2022-08-02 02:31] LABS: Acetaminophen Less than 10.0 mcg/mL (10.0-30.0); Alcohol Less than 10 mg/dL (Less than 10); CK (CPK) 76 U/L (30-200); Salicylate Less than 8.0 mg/dL (15.0-30.0)
[2022-08-02 02:35] LABS: ALT (SGPT) 7 U/L (8-55); AST (SGOT) 11 U/L (5-34); Albumin 3.2 g/dL (3.5-5.0); Alkaline Phosphatase 49 U/L (40-110); Anion Gap 12 mmol/L (10-20); BUN (Urea Nitrogen) 11 mg/dL (8.4-25.7); Calc. Creatinine Clearance 0 mL/min (70-130); Calcium 8.1 mg/dL (7.8-10.44); Carbon Dioxide 19 mmol/L (22-29); Chloride 111 mmol/L (98-107); Estimated GFR 89; Globulin 2.1 g/dL (2.4-3.5); Glucose 119 mg/dL (70-105); Lipase 15 U/L (8-78); Potassium 2.8 mmol/L (3.5-5.1); Protein, Total 5.3 g/dL (6.0-8.3); Sodium 139 mmol/L (136-145)
[2022-08-02] MEDS ORDERED: Potassium Chloride 10 MEQ in Premix Bag 1 BAG IVPB SCH (03:00)
[2022-08-02 03:30] LABS: Bilirubin, Total 0.2 mg/dL (0.2-1.2)
[2022-08-02 03:40] LABS: Bilirubin Negative (Negative); Blood, Urine Negative (Negative); Clarity Clear (Clear); Glucose, Urine (Dipstick) Normal (Negative); Ketone, Urine Negative (Negative); Leukocyte Negative Leu/uL (Negative); Nitrite Negative (Negative); Protein, Urine (Dipstick) Negative (Neg-Trace); Specific Gravity, Urine 1.005 (1.002-1.036); Urobilinogen Normal mg/dL (Less than 2)
[2022-08-02 03:50] LABS: Amphetamine Not Detected (NotDetected); Barbiturates Screen Not Detected (NotDetected); Benzodiazepine Screen Not Detected (NotDetected); Cocaine Metabolite Screen Not Detected (NotDetected); Methadone Not Detected (NotDetected); Methamphetamine Not Detected (NotDetected); Opiate Screen Not Detected (NotDetected); Oxycodone Screen Not Detected (NotDetected); Phencyclidine (PCP) Not Detected (NotDetected); THC/Cannabinoid Screen Detected (NotDetected); Tricyclic Screen Not Detected (NotDetected)
[2022-08-02 04:58] LABS: Lactic Acid 1.9 mmol/L (0.5-2.2)
[2022-08-02 05:35] LABS: Magnesium 1.6 mg/dL (1.6-2.6)
[2022-08-02] MEDS ORDERED: Cefepime 2 GM VIAL ONE (05:40)
[2022-08-02] MEDS ORDERED: Lorazepam 2 MG/ML VIAL SLOW IVP PRN ×3 (07:07→11:33)
[2022-08-02] MEDS ORDERED: D5 1/2 NS w/20 mEq KCL 1,000 ML IV SCH (07:15)
[2022-08-02 07:35] LABS: Lactic Acid 1.3 mmol/L (0.5-2.2)
[2022-08-02] MEDS ORDERED: Ondansetron PF 4 MG/2 ML Vial IVP PRN (07:57)
[2022-08-02] MEDS ORDERED: Acetaminophen 325 MG TAB PO PRN (07:57)
[2022-08-02 08:09] LABS: Magnesium 1.6 mg/dL (1.6-2.6)
[2022-08-02 08:13] VITALS: BMI 31.9
[2022-08-02] MEDS ORDERED: Potassium Chloride 20 MEQ in Premix Bag 1 BAG IVPB SCH (08:45)
[2022-08-02] MEDS: Lactated Ringer's 1,000 ML IV SCH ×2 (08:53→15:34)
[2022-08-02] MEDS ORDERED: Promethazine HCl 12.5 MG in Sodium Chloride 0.9% 50 ML IVPB PRN (10:08)
[2022-08-02] MEDS ORDERED: QUEtiapine 25 MG TAB PO SCH (10:15)
[2022-08-02] MEDS ORDERED: Magnesium Sulfate 4 GM in Sodium Chloride 0.9% 250 ML 250 ML IVPB SCH (16:15)
[2022-08-02] MEDS: Magnesium 2 GM/50 ML(in water) 2 GM in Premix Bag 1 BAG IVPB SCH ×2 (17:20→21:47)
[2022-08-02] MEDS: Potassium Chloride 20 MEQ in Premix Bag 1 BAG IVPB SCH ×2 (17:21→21:46)
[2022-08-02] MEDS: QUEtiapine 25 MG TAB PO SCH (21:47)
[2022-08-02] MEDS ORDERED: Lorazepam 2 MG/ML VIAL SLOW IVP SCH (23:30)
[2022-08-03 02:07] VITALS: BP 125/83
[2022-08-03 04:37] LABS: #Eosinphils 0.2 thou/uL (0.0-0.7); #Lymphocytes 1.9 thou/uL (1.20-3.40); #Monocytes 0.5 thou/uL (0.11-0.59); %Basophils 0.6 % (0.0-1.0); %Eosinophils 2.8 % (0.0-10.0); %Lymphocytes 25.1 % (21.0-51.0); %Monocytes 6.5 % (0.0-10.0); Hemoglobin 13.1 g/dL (14.0-18.0); Mean Corpuscular HGB CONC 33.7 g/dL (32.0-36.0); Mean Corpuscular Hemoglobin 32.1 pg (27.0-31.0); Mean Corpuscular Volume 95.4 fl (78.0-98.0); Mean Platelet Volume 7.3 fL (7.4-10.4); Platelet Count 178 10x3/uL (130-400); Red Blood Cell (RBC) Count 4.08 mill/uL (4.70-6.10); White Blood Cell (WBC) Count 7.6 10x3/uL (4.8-10.8)
[2022-08-03 04:58] LABS: Anion Gap 11 mmol/L (10-20); BUN (Urea Nitrogen) Less than 4 mg/dL (8.4-25.7); Calc. Creatinine Clearance 162 mL/min (70-130); Calcium 8.8 mg/dL (7.8-10.44); Carbon Dioxide 22 mmol/L (22-29); Chloride 114 mmol/L (98-107); Estimated GFR 111; Glucose 89 mg/dL (70-105); Potassium 3.9 mmol/L (3.5-5.1); Sodium 143 mmol/L (136-145)
[2022-08-03] MEDS ORDERED: Ziprasidone 20 MG CAP PO SCH ×2 (08:00)
[2022-08-03] MEDS ORDERED: Ipratropium/Albuterol 3 ML NEB NEB PRN (13:26)
[2022-08-03] MEDS ORDERED: Ketorolac Tromethamine 30 MG/ML VIAL IVP SCH (13:45)
[2022-08-03] MEDS ORDERED: Lidocaine 4% Patch TD SCH (14:00)
[2022-08-03] MEDS ORDERED: Lorazepam 2 MG/ML VIAL SLOW IVP SCH (14:30)
[2022-08-03] MEDS ORDERED: Thiamine HCl 200 MG/2 ML VIAL SLOW IVP SCH (15:00)
[2022-08-03] MEDS: Nicotine 21 MG PATCH TD SCH (16:54)
[2022-08-03] MEDS: Diazepam 5 MG TAB PO SCH ×2 (16:58→20:00)
[2022-08-03] MEDS ORDERED: Gabapentin 300 MG CAP PO SCH ×3 (17:00→21:00)
[2022-08-03] MEDS ORDERED: Pregabalin 50 MG CAP PO SCH ×2 (18:00→21:00)
[2022-08-03] MEDS: Ipratropium/Albuterol 3 ML NEB NEB SCH ×2 (19:14→19:17)
[2022-08-03] MEDS: Gabapentin 300 MG CAP PO SCH (19:57)
[2022-08-03] MEDS: QUEtiapine 25 MG TAB PO SCH (19:58)
[2022-08-03] MEDS ORDERED: Diazepam 5 MG TAB PO SCH (20:00)
[2022-08-03] MEDS ORDERED: Ziprasidone 20 MG VIAL IM SCH (21:15)
[2022-08-03] MEDS ORDERED: Sterile Water 10 ML VIAL FS PRN (21:15)
[2022-08-03] MEDS: Lorazepam 2 MG/ML VIAL SLOW IVP PRN (22:42)
[2022-08-03] MEDS ORDERED: diphenhydrAMINE 50 MG/ML VIAL ONE (23:23)
[2022-08-03] MEDS ORDERED: diphenhydrAMINE 50 MG/ML VIAL IVP SCH (23:30)
[2022-08-04] MEDS: Transdermal Patch Removal TOP SCH (00:10)
[2022-08-04] MEDS: Lorazepam 2 MG/ML VIAL SLOW IVP PRN (00:10)
[2022-08-04] MEDS ORDERED: Dexmedetomidine In 0.9 % NaCl 100 ML IVPB SCH (00:30)
[2022-08-04] MEDS: Ipratropium/Albuterol 3 ML NEB NEB SCH ×4 (02:04→19:31)
[2022-08-04 04:27] LABS: #Eosinphils 0.3 thou/uL (0.0-0.7); #Lymphocytes 1.8 thou/uL (1.20-3.40); #Monocytes 0.4 thou/uL (0.11-0.59); %Basophils 0.6 % (0.0-1.0); %Eosinophils 3.9 % (0.0-10.0); %Lymphocytes 27.4 % (21.0-51.0); %Monocytes 6.7 % (0.0-10.0); %Neutrophils 61.5 % (42.0-75.0); Mean Corpuscular HGB CONC 33.3 g/dL (32.0-36.0); Mean Corpuscular Hemoglobin 32.1 pg (27.0-31.0); Mean Corpuscular Volume 96.4 fl (78.0-98.0); Mean Platelet Volume 6.9 fL (7.4-10.4); Platelet Count 190 10x3/uL (130-400); Red Blood Cell (RBC) Count 4.04 mill/uL (4.70-6.10); White Blood Cell (WBC) Count 6.5 10x3/uL (4.8-10.8)
[2022-08-04 04:50] LABS: ALT (SGPT) 15 U/L (8-55); AST (SGOT) 38 U/L (5-34); Albumin 3.2 g/dL (3.5-5.0); Alkaline Phosphatase 55 U/L (40-110); Anion Gap 10 mmol/L (10-20); BUN (Urea Nitrogen) 4 mg/dL (8.4-25.7); Bilirubin, Total 0.4 mg/dL (0.2-1.2); Calc. Creatinine Clearance 158 mL/min (70-130); Calcium 8.6 mg/dL (7.8-10.44); Carbon Dioxide 21 mmol/L (22-29); Chloride 115 mmol/L (98-107); Estimated GFR 111; Globulin 2.1 g/dL (2.4-3.5); Glucose 102 mg/dL (70-105); Potassium 3.6 mmol/L (3.5-5.1); Protein, Total 5.3 g/dL (6.0-8.3); Sodium 142 mmol/L (136-145)
[2022-08-04] MEDS: Diazepam 5 MG TAB PO SCH ×3 (11:42→20:36)
[2022-08-04] MEDS: Gabapentin 300 MG CAP PO SCH (11:42)
[2022-08-04] MEDS: Pregabalin 50 MG CAP PO SCH ×2 (14:36→20:35)
[2022-08-04] MEDS ORDERED: Pregabalin 75 MG CAP PO SCH (15:00)
[2022-08-04] MEDS: Nicotine 21 MG PATCH TD SCH (15:52)
[2022-08-04] MEDS: QUEtiapine 25 MG TAB PO SCH (20:35)
[2022-08-04 22:27] VITALS: TEMP 97.8
[2022-08-05] MEDS: Ipratropium/Albuterol 3 ML NEB NEB SCH ×2 (01:43→06:57)
[2022-08-05] MEDS: Transdermal Patch Removal TOP SCH (02:41)
[2022-08-05] MEDS ORDERED: FLUoxetine HCl 20 MG CAP PO SCH (09:00)
[2022-08-05] MEDS ORDERED: Lidocaine 4% Patch TD SCH (09:00)
[2022-08-05] MEDS ORDERED: Non-Formulary Item 1 EACH (Fluoxetine Hcl [Prozac] 40 MG Capsule) PO SCH (09:00)
[2022-08-05] MEDS ORDERED: Thiamine 100 MG TAB PO SCH (09:00)
== END 2022-08-05 08:44 | DRG 71 ==
LOC: ERS 00:40 → NEURO 05:32 → OBSVTOIN 12:23 → IMCU/EMU 14:32
PROVIDERS: ADMIT Internal Medicine; ATTEND Family Medicine
DX: G93.41 Metabolic encephalopathy (principal); J44.1 Chronic obstructive pulmonary disease with (acute) exacerbation; R44.3 Hallucinations, unspecified; R45.1 Restlessness and agitation; F41.9 Anxiety disorder, unspecified; F17.210 Nicotine dependence, cigarettes, uncomplicated; E87.6 Hypokalemia; F19.10 Other psychoactive substance abuse, uncomplicated; I10 Essential (primary) hypertension; R53.1 Weakness; M25.512 Pain in left shoulder; T14.91XA Suicide attempt, initial encounter; F12.10 Cannabis abuse, uncomplicated; Z88.8 Allergy status to other drugs, medicaments and biological substances; Z79.899 Other long term (current) drug therapy; Z98.890 Other specified postprocedural states; Z88.0 Allergy status to penicillin; Z78.1 Physical restraint status
CPT/HCPCS: 36415; 36416; 70450; 71045; 76705; 80048; 80053; 80306; 80307; 81003; 82140; 82550; 82607; 83605; 83690; 83735; 84443; 84484; 85025; 85610; 85730; 93005; 96365; 96366; 96367; 96372; 96376; G0378; J0692; J1200; J1650; J1885; J2060; J3411; J3475; J3480; J3486; J3490; J7120; J7620

== ENCOUNTER 2022-11-01 12:32 | Emergency (ER) | payer SELFPAY ==
[~2022-11-01 12:32] MED LIST changes: +Iopamidol-370 76% 500 ML MDV (1 ML CHARGE) ONE; -Lorazepam 1 MG TAB ONE; -Nicotine 21 MG PATCH TOP SCH; -Ziprasidone 20 MG VIAL ONE; -diphenhydrAMINE 50 MG CAP ONE
[2022-11-01] MEDS ORDERED: Morphine 4 MG/ML VIAL ONE (14:09)
[2022-11-01] MEDS ORDERED: Ondansetron PF 4 MG/2 ML Vial ONE (14:09)
[2022-11-01 14:19] LABS: #Eosinphils 0.1 thou/uL (0.0-0.7); #Monocytes 0.6 thou/uL (0.11-0.59); #Neutrophils 5.3 thou/uL (1.40-6.50); %Basophils 0.4 % (0.0-1.0); %Eosinophils 1.2 % (0.0-10.0); %Lymphocytes 22.1 % (21.0-51.0); %Monocytes 7.4 % (0.0-10.0); %Neutrophils 68.5 % (42.0-75.0); Hemoglobin 13.6 g/dL (14.0-18.0); Mean Corpuscular HGB CONC 33.5 g/dL (32.0-36.0); Mean Corpuscular Hemoglobin 31.2 pg (27.0-31.0); Mean Corpuscular Volume 93.1 fl (78.0-98.0); Platelet Count 218 10x3/uL (130-400); RBC Distribution Width 12.2 % (11.5-14.5); Red Blood Cell (RBC) Count 4.36 mill/uL (4.70-6.10); White Blood Cell (WBC) Count 7.7 10x3/uL (4.8-10.8)
[2022-11-01 14:40] LABS: ALT (SGPT) Less than 7 U/L (8-55); AST (SGOT) 9 U/L (5-34); Albumin 3.6 g/dL (3.5-5.0); Alkaline Phosphatase 63 U/L (40-110); Anion Gap 9 mmol/L (10-20); BUN (Urea Nitrogen) 7 mg/dL (8.4-25.7); Bilirubin, Total 0.3 mg/dL (0.2-1.2); Calc. Creatinine Clearance 0 mL/min (70-130); Calcium 8.9 mg/dL (7.8-10.44); Carbon Dioxide 25 mmol/L (22-29); Chloride 103 mmol/L (98-107); Estimated GFR 77; Globulin 2.4 g/dL (2.4-3.5); Glucose 91 mg/dL (70-105); Potassium 4.1 mmol/L (3.5-5.1); Sodium 133 mmol/L (136-145)
== END 2022-11-01 16:15 | disposition home or self-care (01) ==
LOC: EEVIPCON 12:32 → ERS 12:32
DX: S20.219A Contusion of unspecified front wall of thorax, initial encounter (principal); S33.5XXA Sprain of ligaments of lumbar spine, initial encounter; J44.9 Chronic obstructive pulmonary disease, unspecified; F17.210 Nicotine dependence, cigarettes, uncomplicated; W10.9XXA Fall (on) (from) unspecified stairs and steps, initial encounter
CPT/HCPCS: 36415; 70450; 71260; 72125; 74177; 80053; 85025; 96374; 96375; J2270; J2405; Q9967

== ENCOUNTER 2023-03-06 19:16 | Emergency (ER) | payer SELFPAY ==
[2023-03-06 20:17] LABS: #Basophils 0.1 thou/uL (0.0-0.2); #Eosinphils 0.1 thou/uL (0.0-0.7); #Monocytes 0.6 thou/uL (0.11-0.59); #Neutrophils 7.6 thou/uL (1.40-6.50); %Basophils 0.5 % (0.0-1.0); %Eosinophils 1.3 % (0.0-10.0); %Lymphocytes 23.2 % (21.0-51.0); %Monocytes 5.8 % (0.0-10.0); %Neutrophils 68.7 % (42.0-75.0); Hematocrit 41.4 % (42.0-52.0); Hemoglobin 13.6 g/dL (14.0-18.0); Mean Corpuscular HGB CONC 32.9 g/dL (32.0-36.0); Mean Corpuscular Hemoglobin 31.4 pg (27.0-31.0); Mean Corpuscular Volume 95.6 fl (78.0-98.0); Mean Platelet Volume 9.4 fL (7.4-10.4); Platelet Count 210 10x3/uL (130-400); RBC Distribution Width 13.5 % (11.5-14.5); Red Blood Cell (RBC) Count 4.33 mill/uL (4.70-6.10); White Blood Cell (WBC) Count 11.1 10x3/uL (4.8-10.8)
[2023-03-06] MEDS ORDERED: Acetaminophen 500 MG TAB ONE (20:26)
[2023-03-06 20:39] LABS: ALT (SGPT) 12 U/L (8-55); AST (SGOT) 11 U/L (5-34); Albumin 3.2 g/dL (3.5-5.0); Alkaline Phosphatase 52 U/L (40-110); Anion Gap 9 mmol/L (10-20); BUN (Urea Nitrogen) 9 mg/dL (8.4-25.7); Bilirubin, Total Less than 0.2 mg/dL (0.2-1.2); Calc. Creatinine Clearance 0 mL/min (70-130); Calcium 7.9 mg/dL (7.8-10.44); Carbon Dioxide 22 mmol/L (22-29); Chloride 111 mmol/L (98-107); Estimated GFR 105; Globulin 1.7 g/dL (2.4-3.5); Glucose 99 mg/dL (70-105); Potassium 4.2 mmol/L (3.5-5.1); Protein, Total 4.9 g/dL (6.0-8.3); Sodium 138 mmol/L (136-145)
[2023-03-06 20:43] LABS: Troponin I Less than 0.010 ng/mL (< 0.028)
== END 2023-03-06 20:55 | disposition home or self-care (01) ==
LOC: ERS 19:16
DX: R07.89 Other chest pain (principal); K29.00 Acute gastritis without bleeding; J44.9 Chronic obstructive pulmonary disease, unspecified
CPT/HCPCS: 71045; 80053; 83690; 84484; 85025; 93005

== ENCOUNTER 2023-03-14 07:16 | Emergency (ER) | payer SELFPAY ==
[2023-03-14 08:04] LABS: #Basophils 0.1 thou/uL (0.0-0.2); #Eosinphils 0.1 thou/uL (0.0-0.7); #Monocytes 0.5 thou/uL (0.11-0.59); #Neutrophils 5.4 thou/uL (1.40-6.50); %Basophils 0.7 % (0.0-1.0); %Eosinophils 0.7 % (0.0-10.0); %Monocytes 5.9 % (0.0-10.0); %Neutrophils 70.9 % (42.0-75.0); Hematocrit 45.9 % (42.0-52.0); Hemoglobin 14.9 g/dL (14.0-18.0); Mean Corpuscular HGB CONC 32.5 g/dL (32.0-36.0); Mean Corpuscular Hemoglobin 30.5 pg (27.0-31.0); Mean Corpuscular Volume 94.1 fl (78.0-98.0); Mean Platelet Volume 9.4 fL (7.4-10.4); Platelet Count 225 10x3/uL (130-400); RBC Distribution Width 13.5 % (11.5-14.5); Red Blood Cell (RBC) Count 4.88 mill/uL (4.70-6.10); White Blood Cell (WBC) Count 7.7 10x3/uL (4.8-10.8)
[2023-03-14] MEDS ORDERED: Morphine 4 MG/ML VIAL ONE (08:09)
[2023-03-14] MEDS ORDERED: Ondansetron PF 4 MG/2 ML Vial ONE (08:09)
[2023-03-14 08:29] LABS: ALT (SGPT) 16 U/L (8-55); AST (SGOT) 16 U/L (5-34); Albumin 4.2 g/dL (3.5-5.0); Alkaline Phosphatase 68 U/L (40-110); Anion Gap 13 mmol/L (10-20); BUN (Urea Nitrogen) 9 mg/dL (8.4-25.7); Bilirubin, Total 0.2 mg/dL (0.2-1.2); Calc. Creatinine Clearance 0 mL/min (70-130); Carbon Dioxide 22 mmol/L (22-29); Chloride 106 mmol/L (98-107); Estimated GFR 105; Globulin 2.1 g/dL (2.4-3.5); Glucose 108 mg/dL (70-105); Potassium 3.9 mmol/L (3.5-5.1); Protein, Total 6.3 g/dL (6.0-8.3); Sodium 137 mmol/L (136-145)
[2023-03-14 09:08] LABS: INR-International Normal Ratio 0.9; Prothrombin Time 12.4 sec (12.0-14.7)
[2023-03-14 09:09] LABS: PTT 24.6 sec (22.9-36.1)
[2023-03-14 09:25] LABS: Acetaminophen Less than 10 mcg/mL (10.0-30.0); Alcohol Less than 10.0 mg/dL (Less than 10); Salicylate Less than 8.0 mg/dL (15.0-30.0)
[2023-03-14 09:29] LABS: Troponin I Less than 0.010 ng/mL (< 0.028)
[2023-03-14] MEDS ORDERED: Lidocaine 1% w/Epinephrine 1:100K 20 ML VIAL ONE (09:52)
[2023-03-14] MEDS ORDERED: Boostrix 0.5 ML (Tdap) VIAL (>/=7 yrs of age) ONE (10:40)
== END 2023-03-14 12:37 | disposition home or self-care (01) ==
LOC: ERS 07:16
DX: S01.81XA Laceration without foreign body of other part of head, initial encounter (principal); R55 Syncope and collapse; Z23 Encounter for immunization; W18.30XA Fall on same level, unspecified, initial encounter
CPT/HCPCS: 36415; 70450; 71045; 72125; 80053; 80307; 83880; 84484; 85025; 85610; 85730; 90471; 90715; 93005; 96361; 96374; J2270; J2405